=== PATIENT | female | born 1970 | race Caucasian/White ===

== ENCOUNTER → 2016-06-21 | Outpatient (CLI) | payer OTHER ==
[~2016-06-21] MED LIST: ALDACTONE; ASA; CIPRO PO; HYDROCODON-ACE1 EAC7 PO; NIFEDIPINE; ROBAXIN 750750 M1 PO
--- NOTE | ~2016-06-21 | MY11 ---
[facility] A Service of [facility] RADIOLOGY TEXT RESULTS PATIENT: ANDRES REY LOCATION: [facility] : 72 UNIT #: [id number] AGE: [address]: Leonie Chang MD SEX: F ORDER DR: [id number] [facility] [address] [place], [place] [address] [id number] O MR#: [id number] Acc #: [id number] NAME: ANDRES REY : 1970 SEX: F STUDY DATE/TIME: 06/21/2016 12:34 UNIT: [facility] ROOM: STUDY DESCRIPTION: MY Mammogram Screening Dig Usman Attending Physician: Leonie Chang M.D. Ordering Physician: Leonie Chang M.D. Primary Care Physician: Leonie Chang M.D. MEDICAL IMAGING REPORT This report is preliminary unless electronic signature is present EXAM Bilateral digital screening mammogram with CAD. DATE OF EXAM 06/21/2016 INDICATIONS 45-year-old female for routine screening. No reported problems and no personal or family history of breast cancer. No surgeries. TECHNIQUE CC and MLO views of the breast were obtained and reviewed with an FDA-approved CAD device. COMPARISON There are no comparisons. This is her baseline study. FINDINGS Exaggerated CC lateral view on the right also performed. Breast parenchyma is composed of scattered fibroglandular densities. The pattern is symmetric. There is no dominant suspicious mass or clustered microcalcifications in either breast. In the middle third depth left breast just lateral to the posterior nipple line, there is a 9 mm faintly nodular asymmetry that is present on the CC projection only. This is probably a projectional or summation artifact. Without prior studies however for comparison, it should be further evaluated with spot compression, rolled views and a true lateral view. If an abnormality persists, following additional views, targeted ultrasound would be recommend for further assessment. IMPRESSION 1. 9 mm nodular asymmetry in the left breast. Additional views and potentially a breast ultrasound are recommended for further [facility] A Service of [facility] RADIOLOGY TEXT RESULTS PATIENT: ANDRES REY LOCATION: [facility] #: [id number] : 72 UNIT #: [id number] AGE: [address]: Leonie Chang MD SEX: F ORDER DR: assessment. Patients over the age of 40 are entered into a reminder system with target due date for the next mammogram. A result letter will also be sent to the patient. BIRADS: 0 Incomplete; need additional imaging evaluation and/or prior mammograms for comparison. Dictated by... Armand Gray M.D. THIS IS AN ELECTRONICALLY VERIFIED REPORT Armand Gray M.D. at 06/24/2016 7:31 AM ARTURO/george TD: 06/21/2016 20:40 JOB #: [id number] MEDICAL IMAGING REPORT Page 1 of 1 COPY
== END | disposition home or self-care (01) ==
LOC: CWCC 11:32
DX: Z12.31 Encounter for screening mammogram for malignant neoplasm of breast (principal); N63 Unspecified lump in breast
CPT/HCPCS: G0202

== ENCOUNTER → 2016-07-04 | Outpatient (CLI) | payer OTHER ==
--- NOTE | ~2016-07-04 | US24 ---
[facility] A Service of [facility] RADIOLOGY TEXT RESULTS PATIENT: ANDRES REY LOCATION: [facility] : 72 UNIT #: [id number] AGE: [address]: Leonie Chang MD SEX: F ORDER DR: [id number] [facility] [address] [place], [place] [address] [id number] O MR#: [id number] Acc #: [id number] NAME: ANDRES REY : 1970 SEX: F STUDY DATE/TIME: 07/04/2016 8:11 UNIT: [facility] ROOM: STUDY DESCRIPTION: US Breast Unilateral Attending Physician: Leonie Chang M.D. Referring Physician: Leonie Chang M.D. Ordering Physician: Leonie Chang M.D. Primary Care Physician: Leonie Chang M.D. MEDICAL IMAGING REPORT This report is preliminary unless electronic signature is present EXAM Left breast ultrasound. INDICATIONS Abnormal mammogram. PROCEDURE He-scale imaging in the left breast in the area of mammographic concern. COMPARISON None. FINDINGS/IMPRESSION Refer to the separately dictated diagnostic mammogram for workup, findings, and recommendations. BIRADS: 3 Probably benign finding; short interval followup suggested. Dictated by... Zohaib Clark M.D. THIS IS AN ELECTRONICALLY VERIFIED REPORT Zohaib Clark M.D. at 07/05/2016 7:00 AM EDUAR/marta TD: 07/04/2016 12:17 JOB #: [id number] MEDICAL IMAGING REPORT Page 1 of 1 COPY
--- NOTE | ~2016-07-04 | MY7 ---
[facility] A Service of [facility] RADIOLOGY TEXT RESULTS PATIENT: ANDRES REY LOCATION: [facility] : 72 UNIT #: [id number] AGE: [address]: Leonie Chang MD SEX: F ORDER DR: [id number] [facility] [address]. [place], [place] [address] [id number] O MR#: [id number] Acc #: [id number] NAME: ANDRES REY : 1970 SEX: F STUDY DATE/TIME: 07/04/2016 7:46 UNIT: [facility] ROOM: STUDY DESCRIPTION: MY Mammogram Dx Dig Lt Attending Physician: Leonie Chang M.D. Referring Physician: Leonie Chang M.D. Ordering Physician: Deshawn Chang M.D. Primary Care Physician: Leonie Chang M.D. MEDICAL IMAGING REPORT This report is preliminary unless electronic signature is present EXAM Left digital diagnostic mammogram INDICATION Asymmetry in the right breast on screening mammogram. PROCEDURE True lateral view of the left breast. Spot compression view of the left breast in the CC projection and rolled medial and rolled lateral views of the left breast in the CC projection. Images obtained on a digital mammography unit. COMPARISON 06/21/2016. FINDINGS There is an 8-9 mm poorly marginated density that persists in the central left breast on both the spot compression and rolled views. It is not well-placed on the lateral view. There is no correlate on concurrently performed left breast ultrasound. IMPRESSION Persistent 8-9 mm asymmetry in the central left breast, not well placed on the lateral view and not seen on the concurrently performed left breast ultrasound. Recommend patient return for a 6-month followup left diagnostic mammogram. Patients over the age of 40 are entered into a reminder system with target due date for the next mammogram. A result letter will also be sent to the patient. BIRADS: 3 Probably benign finding; short interval followup suggested [facility] A Service [facility] RADIOLOGY TEXT RESULTS PATIENT: ANDRES REY LOCATION: [facility] : 72 UNIT #: [id number] AGE: [address]: Leonie Chang MD SEX: F ORDER DR: Dictated by... Zohaib Clark M.D. THIS IS AN ELECTRONICALLY VERIFIED REPORT Zohaib Clark M.D. at 07/05/2016 7:00 AM EDUAR/chintan TD: 07/04/2016 12:09 JOB #: [id number] MEDICAL IMAGING REPORT Page 1 of 1 COPY
== END | disposition home or self-care (01) ==
LOC: CWCC 07:24
DX: R92.8 Other abnormal and inconclusive findings on diagnostic imaging of breast (principal); N64.89 Other specified disorders of breast
CPT/HCPCS: 76641; G0206

== ENCOUNTER → 2016-10-16 | Outpatient (CLI) | payer OTHER ==
--- NOTE | ~2016-10-16 | CR181 ---
[facility] A Service of [facility] RADIOLOGY TEXT RESULTS PATIENT: ANDRES REY LOCATION: [facility] : 72 UNIT #: [id number] AGE: [address]: Leonie Chang MD SEX: F ORDER DR: [id number] [address] [address] [id number] O MR#: [id number] Acc #: [id number] NAME: ANDRES REY : 1970 SEX: F STUDY DATE/TIME: 10/16/2016 10:51 UNIT: [facility] ROOM: STUDY DESCRIPTION: CR Lumbar Spine 2 or 3 Views Attending Physician: Leonie Chang M.D. Ordering Physician: Leonie Chang M.D. Primary Care Physician: Leonie Chang M.D. MEDICAL IMAGING REPORT This report is preliminary unless electronic signature is present. EXAM Lumbar spine, 10/16/2016 HISTORY 46-year-old female with low back pain for 3 weeks. No specific injury. COMPARISON Lumbar spine, 10/07/2015 FINDINGS Three views of the lumbar spine demonstrate no acute fracture or subluxation. Vertebral body heights and alignment are normally maintained. Disc spaces are within normal limits. Facets are unremarkable. Sacrum and SI joints intact. IMPRESSION Unremarkable lumbar spine. Dictated by... Montana Mccray M.D. THIS IS AN ELECTRONICALLY VERIFIED REPORT Montana Mccray M.D. at 10/17/2016 5:54 AM MICHEAL/too TD: 10/16/2016 20:09 JOB #: [id number] MEDICAL IMAGING REPORT Page 1 of 1
== END | disposition home or self-care (01) ==
LOC: SRAD 10:38
DX: M54.5 Low back pain (principal)
CPT/HCPCS: 72100